=== PATIENT | male | born 2000 | race Caucasian/White ===

== ENCOUNTER 2024-07-18 13:57 | Emergency (ER) | payer SELFPAY ==
[2024-07-18 14:07] VITALS: BP 120/74; PULSE 106; RESP 20; TEMP 37.1; O2SAT 95
[2024-07-18 14:15] VITALS: BMI 25.8
--- NOTE | 2024-07-18 14:16 | PD.EDRME ---
Rapid Medical Screening Exam RME Arrival date/time: 07/18/24 13:57 Time Seen by Provider: 07/18/24 14:15 Vital signs: Vital Signs Temperature 98.8 F 07/18/24 14:07 Pulse Rate 106 H 07/18/24 14:07 Respiratory Rate 20 07/18/24 14:07 Blood Pressure 120/74 07/18/24 14:07 Pulse Oximetry (%) 95 07/18/24 14:07 Oxygen Delivery Method Room Air 07/18/24 14:07 Vital signs reviewed by provider: Yes RME Narrative: 24-year-old male presents to the ED via [place] [employer] for a psych evaluation and 72-hour hold. After indicates the patient was darting in and out of traffic. The patient states he was just trying to get some water and feels that he is dehydrated. He denies using any drugs at this time. I have greeted and performed a focused initial assessment of this patient. A comprehensive ED assessment and evaluation of the patient, analysis of all test results, and completion of the medical decision making process will be conducted by additional ED providers.
--- NOTE | 2024-07-18 14:25 | PC.NURSE ---
PT PUT IN ROOM 19. BROUGHT IN BY [employer] ON 5150 HOLD FOR ERRATIC BEHAVIOR RUNNING IN AND OUT OF THE ROAD PER OFFICER. PT STOMPING FEET ON GROUND AND WHEN ASKED TO TAKE CLOTHING OFF/PUT ON GOWN, PT TOOK CLOTHING OFF AND STARTING THROWING CLOTHING ON FLOOR. NURSE FOUND 2 BAGGIES IN PT'S POCKET WHEN DOING BELONGINGS LIST AND GAVE TO OFFICER
--- NOTE | 2024-07-18 14:52 | PD.EDPSYCH ---
ED Psych RME/HPI General Chief Complaint: General Adult/Misc Complain Stated Complaint: MENTAL EVALUATION Time Seen by Provider: 07/18/24 14:15 Arrival date/time: 07/18/24 13:57 Limitations: no limitations RME / HPI RME / HPI Narrative: 24-year-old male presents to the ED via [place] [employer] for a psych evaluation and 72-hour hold. After indicates the patient was darting in and out of traffic. The patient states he was just trying to get some water and feels that he is dehydrated. He denies using any drugs at this time. I have greeted and performed a focused initial assessment of this patient. A comprehensive ED assessment and evaluation of the patient, analysis of all test results, and completion of the medical decision making process will be conducted by additional ED providers. DR. ALVARADO MAIN ED EVALUATION: 24 year old male with history of ADHD, oppositional defiant disorder presents to the ED BIB [employer] on a 5150 hold. Per 5150 report, the patient was running in/out of traffic without any regards for his safety. While in the ED patient has no complaints. Denies any pain or injuries. Patient admits to using drugs, methamphetamine and a type of Fentanyl, last used last night. Denies suicidal or homicidal ideation. Related Data Previous Rx's ?Medication ?Instructions ?Recorded sulfamethoxazole 800 1 tab PO BID #14 tabs 10/24/23 mg-trimethoprim 160 mg tablet (Bactrim DS) Allergies Allergy/AdvReac Type Severity Reaction Status Date / Time amoxicillin Allergy Severe Flushing Verified 07/18/24 14:42 Penicillins Allergy Unknown Rash Verified 07/18/24 14:42 Review of Systems Review of Systems Narrative Review of Systems: GEN: No fever, no chills, no weight loss EYES: No discharge, no visual changes, no pain HEENT: No ear pain, no congestion, no sore throat PULM: No shortness of breath, no cough, no congestion CV: No chest pain, no dyspnea on exertion, no palpitations GI: No nausea, no vomiting, no diarrhea, no pain, no constipation : No frequency, no urgency, no dysuria MUSC/SKEL: No joint pain, no back pain SKIN: No rash PSYCH: +drug use. No SI or HI. No hallucinations, no depression HEME/LYMPH: No easy bleeding or bruising tendencies NEURO: No weakness, no headache Past Medical History Past Medical History CARDIAC: Negative Congestive Heart Failure RESPIRATORY: Negative Chronic Obstructive Pulmonary Disease (COPD) GENITOURINARY: Negative Renal Disease ENDOCRINE: Negative Diabetes Mellitus Type 1 or Diabetes Mellitus Type 2 PSYCHO/SOCIAL: Positive Attention Deficit Hyperactivity Disorder Social History SMOKING STATUS: Light (< 1 pack/day) ED Exam General Limitations: Present no limitations General appearance: Present alert and in no apparent distress Head Head exam: Present atraumatic, normocephalic and normal inspection Eye Eye exam: Present normal appearance, PERRL and EOMI ENT ENT exam: Present normal exam, normal oropharynx and mucous membranes moist Neck Neck exam: Present normal inspection, full ROM and trachea midline Chest Chest inspection: Present normal inspection and symmetric chest wall rise Respiratory Respiratory exam: Present normal lung sounds bilaterally Cardiovascular Cardiovascular exam: Present regular rate, normal rhythm and normal heart sounds Abdominal Exam Abdominal exam: Present soft and normal bowel sounds Extremities Exam Extremities exam: Present normal inspection and full ROM Back Exam Back exam: Present normal inspection and full ROM Neurological Exam Neurological exam: Present alert, oriented X3 and CN II-XII intact Psychiatric Psychiatric exam: Present normal affect and normal mood Skin Skin exam: Present warm, dry, intact and normal color Course Quality Measures none Orders Category Date Time Status Acetaminophen Stat Lab 07/18/24 14:52 Completed Alcohol, Blood Medical Stat Lab 07/18/24 14:52 Completed CBC Stat Lab 07/18/24 14:52 Completed CMP [Comprehensive Metabolic Panel] Stat Lab 07/18/24 14:52 Completed Drug Screen,Urine Stat Lab 07/18/24 14:19 Ordered Salicylate Stat Lab 07/18/24 14:52 Completed Vital Signs Vital signs: Vital Signs Temperature 98.8 F 07/18/24 14:07 Pulse Rate 106 H 07/18/24 14:07 Respiratory Rate 20 07/18/24 14:07 Blood Pressure 120/74 07/18/24 14:07 Pulse Oximetry (%) 95 07/18/24 14:07 Oxygen Delivery Method Room Air 07/18/24 14:07 Pulse ox is 95% on room air which is adequate. Psych MDM Narrative MDM Narrative:: Gely Moore am scribing for and in the presence of Dr. Alvarado. 1456: Patient is medically cleared for mental health evaluation. ASW has met with the patient and rescinded the 5150 hold. States patient was provided with community resources and clothing. Will DC home. Patient data External records reviewed:: [facility] previous records Clinical information provided by:: patient and law enforcement Social determinants that could affect healthcare access:: substance use Patient has the following chronic illnesses:: ADHD, ODD How is presenting disease/condition affected by chronic disease/condition?: exacerbated by Evaluation data The following diagnostics were reviewed and interpreted by me:: lab results Lab and/or radiology exams considered but not ordered:: None Interpretation Summary: CBC within normal limits Medications / Prescriptions Medications or Prescriptions considered but not ordered:: None Medication administrations:: None Consultations Consultation(s) initiated? (list below): No Diagnosis Psych Differential Diagnosis: acute psychosis, depression, drug-induced psychotic disorder and acute anxiety Most likely diagnosis given after review of the tests above:: Methamphetamine and Fentanyl abuse Agitation Admission Indicated Admission indicated?: not indicated Admission Request Was there a request for admission?: No Disposition Plan Disposition Plan: Discharge Discharge Attestation Discharge Attestation: The patient and all family members were given an opportunity to ask questions and understood the discharge instructions. Discharge instructions specifically effects, indications for sooner follow up or return to the emergency department, and the expected course of current diagnosis. Patient condition: Stable Discharge Plan Plan Patient Disposition: HOME (Self Care) Prescriptions/Referrals Prescriptions/Med Rec: No Action sulfamethoxazole-trimethoprim [Bactrim DS] 800-160 mg tablet 1 tab PO BID Qty: 14 0RF Referrals: No Primary/Family,Physician [Primary Care Provider] - In 1 week Problem List Clinical Impression: Methamphetamine abuse, Mild fentanyl abuse, Agitation Patient/Caregiver Discharge Instructions Education Materials: ED Drug Abuse Additional Instructions: Follow up with your doctor as needed. Print Language: Vietnamese Stand Alone Forms: [employer] Award Info., Patient Portal Info Letter
--- NOTE | 2024-07-18 14:55 | PC.NURSE ---
PER DR. ALVARADO PT MEDICALLY CLEARED FOR BRASS PLATER TO EVAL
[2024-07-18 15:03] LABS: Basophils % (Auto) 1 % (0-2.5); Eosinophils # (Auto) 0.1 Thou/mm3 (0.0-0.5); Eosinophils % (Auto) 1 % (0-10); Hematocrit 39.1 % (41.0-53.0); Hemoglobin 13.5 g/dL (13.5-16.0); Immature Granulocytes % (Auto) 0 % (0-0); Immature Granulocytes Auto 0.01 Thou/mm3 (0.00-0.00); Lymphocytes # (Auto) 2.8 Thou/mm3 (1.0-4.8); Lymphocytes % (Auto) 35 % (10-50); Mean Corpuscular HGB Conc 34.5 g/dl (31.0-37.0); Mean Corpuscular Hemoglobin 29.7 pg (25.0-35.0); Mean Corpuscular Volume 86 fL (80-100); Monocytes # (Auto) 0.9 Thou/mm3 (0.0-0.8); Monocytes % (Auto) 11 % (0-12); Neutrophils # (Auto) 4.1 Thou/mm3 (1.8-7.7); Neutrophils % (Auto) 52 % (37-80); Nucleated Red Blood Cell % 0 /100 WBC (0); Platelet Count 182 Thou/mm3 (140-440); RDW Standard Deviation 41.8 fL (35.1-43.9); Red Blood Count 4.55 Miln/mm3 (4.50-5.90); White Blood Count 7.9 Thou/mm3 (3.8-10.6)
[2024-07-18 15:25] LABS: Acetaminophen 2.4 mcg/mL (10.0-20.0); Alanine Aminotransferase 26 U/L (10-49); Albumin, Serum 4.5 gm/dL (3.5-5.0); Albumin/Globulin Ratio 1.9 (1.2-2.2); Alcohol, Blood Medical < 3.0 mg/dL (0-10.0); Alkaline Phosphatase 77 U/L (46-116); Anion Gap 8 (7-16); Aspartate Amino Transferase 61 U/L (0-34); BUN/Creatinine Ratio 9 Ratio (12-20); Bilirubin,Total 0.8 mg/dL (0.3-1.2); Blood Urea Nitrogen 10 mg/dL (9-23); Calcium 8.7 mg/dL (8.3-10.6); Calcium (Corrected) 8.7 mg/dL (8.5-10.1); Carbon Dioxide 26.5 mMol/L (20.0-31.0); Chloride 113 mMol/L (98-107); Creatinine (Component) 1.1 mg/dL (0.6-1.3); Estimated Creatinine Clearance 105.3 mL/min (>60); Globulin 2.4 gm/dL (2.3-3.5); Glucose 77 mg/dL (74-106); Osmolality,Calculated 290 (275-295); Salicylate < 3.0 mg/dL; Sodium 147 mMol/L (136-145); Total Protein 6.9 gm/dL (5.7-8.2); eGFR > 60 See Note
--- NOTE | 2024-07-18 15:31 | PC.CC ---
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 ASWMichelle made face to face contact with patient introduced self, role, and reason for visit. Patient presents as alert and oriented to self, location, and situation. Patient present as anxious and fidgeting with his fingers; his behavior was hyperactive; patient presented with good judgment and insight. Patient present malodourous and unkempt. Patient reports he has been homeless for 4 years. Patient reports today he was attempting to get a [employer] cup from the roadway as it is warm outside and he felt hot and dehydrated. Patient denied running in and out of traffic as indicated in the 5150-hold. Patient denied suicidal and homicidal; visual and auditory hallucinations at the time of encounter. Patient denied past suicide attempts, but reports to being placed on a 5150-hold in the past. Patient was poor historian and unable to remember why he was placed on a 5150-hold. Patient admitted to substance use Methamphetamines and Fentanyl recently. Patient reports he has a diagnosis of Attention Deficit Hyperactivity Disorder and Oppositional Defiant Disorder. Patient reports he is not connected to mental health outpatient services. Patient declined mental health appointment at this time and reports if he is discharged he will to the [facility]. Patient reports he does not have contact with family for collateral information. This technical publications writer inquired about aunt that is listed on demographics and patient reports he does not have communication with her. Upon clinical consultation with CIGARETTE MAKING EXAMINER, Emily Fuentes the patient does not meet criteria for 5150-hold and this hold will be rescinded. Patient will be provided with clothing, meal, and a community resource guide. Patient does not want an appointment with outpatient mental health services.? ASW provided update to Dr. Mac, stevedoring superintendent Kathy, and VANESSA Arias of 5150-hold disposition plan.
--- NOTE | 2024-07-18 15:33 | PC.NURSE ---
MERRY CORONADO(AUNT) CALLED ASKING FOR UPDATE ON PT
--- NOTE | 2024-07-18 15:35 | PC.NURSE ---
5150N RESCINDED BY TERRAZZO WORKER. AWAITING MD TO DISCHARGE PT
== END 2024-07-18 15:55 | disposition home or self-care (01) ==
PROVIDERS: Physician Assistant; Emergency Provider Family Medicine
DX: Z04.6 Encounter for general psychiatric examination, requested by authority (principal); R45.1 Restlessness and agitation; F15.10 Other stimulant abuse, uncomplicated; F11.10 Opioid abuse, uncomplicated
CPT/HCPCS: 36415; 80053; 80307; 80320; 80329; 85025; 90839; 99284; G0480